=== PATIENT | female | born 1955 | race Caucasian/White ===

== ENCOUNTER 2022-11-11 09:20 | Outpatient (CLI) | payer OTHER, MEDICAID ==
[2022-11-11] MEDS ORDERED: Magnevist 469MG/ML 20 ML VIAL ONE (13:54)
== END 2022-11-11 09:21 | disposition home or self-care (01) ==
LOC: MRI 09:20 → BICMRI 09:21
PROVIDERS: ATTEND Psychiatry & Neurology Neurology
DX: R56.9 Unspecified convulsions (principal)
CPT/HCPCS: 70553; 82565